=== PATIENT | male | born 1975 | race Caucasian/White ===

== ENCOUNTER 2017-03-21 07:15 | Emergency (ER) | payer OTHER ==
[~2017-03-21] VITALS: Ht 175.3 cm; Wt 122.5 kg
[~2017-03-21 07:15] MED LIST: ANTIVERT12.5 MG PO; ARTANE2 MG PO; ASPIR 8181 MG PO; ATA25 PO; BEN20 PO; CLOTRIMAZOLE; CLOTRIMAZOLE1% TOP; DICYCLOMINE20 MG PO; DOK100 M1 PO; DOK100 M3 PO; GAS RELIEF80 MG PO; GAS-X80 MG PO; GEODON60 MG PO; GEODON80 MG PO; HYDROXYZINE50 M1 PO; KLO0.5 PO; LOVASTATIN20 MG PO; METOCLOPRAMIDE10 MG PO; METOPROLOL TART25 M1 PO; OMEPRAZOLE D/R20 MG PO; PRILOSEC40 MG PO; PRINIVIL10 MG PO; PROMETHAZINE25 M3 PO; TOPIRAGEN200 MG PO; TOPIRAMATE100 M1 PO; ZANTAC 300300 MG PO; ZIPRASIDONE HCL80 MG PO
[2017-03-21 07:27] VITALS: BP 126/88
== END 2017-03-21 08:40 | disposition home or self-care (01) ==
LOC: ED 07:15
DX: T23.252A Burn of second degree of left palm, initial encounter (principal); T23.251A Burn of second degree of right palm, initial encounter; I10 Essential (primary) hypertension; Z79.899 Other long term (current) drug therapy; X17.XXXA Contact with hot engines, machinery and tools, initial encounter; Y93.89 Activity, other specified; Y99.8 Other external cause status; Y92.89 Other specified places as the place of occurrence of the external cause

== ENCOUNTER 2018-09-24 06:24 | Inpatient (IN) | payer OTHER ==
[~2018-09-24] VITALS: Ht 175.3 cm; Wt 119.7 kg
[~2018-09-24 06:24] MED LIST changes: -ANTIVERT12.5 MG PO; +ART2 PO; -ARTANE2 MG PO; -CLOTRIMAZOLE; +GAS-X EXTRA ST125 M1 PO; -GAS-X80 MG PO; +MECLIZINE HCL12.5 MG PO; +PRILOSEC OTC20 M1; -PRILOSEC40 MG PO; -TOPIRAGEN200 MG PO; +TOPIRAMATE200 M1 PO
[2018-09-24 06:28] VITALS: Ht 175.3 cm; Wt 119.7 kg
[2018-09-24 07:29] LABS: BASOPHIL % 0.1 % (0-2); PLATELET COUNT 190 x10^3mcL (130-400); RED CELL DISTRIBUTION WIDTH 12.9 % (11.5-14.5)
[2018-09-24 07:30] LABS: CALCIUM 8.5 mg/dL (8.5-10.1); CARBON DIOXIDE 21.2 mmol/L (21-32); CREATININE SERUM 1.4 mg/dL (0.7-1.3); POTASSIUM SERUM 5.4 mmol/L (3.5-5.1)
[2018-09-24 07:34] LABS: ALBUMIN 3.9 g/dL (3.4-5.0); BILIRUBIN TOTAL 0.62 mg/dL (0.20-1.00); TOTAL PROTEIN, SERUM 7.3 g/dL (6.4-8.2)
[2018-09-24 07:53] LABS: microscopic required? YES; urine erythrocyte 1+ (NEGATIVE)
[2018-09-24] MEDS ORDERED: GEODON80 MG PO (09:17)
[2018-09-24] MEDS ORDERED: GEODON60 MG PO (09:17)
[2018-09-24] MEDS ORDERED: METFORMIN HYDR500 M1 PO (09:19)
[2018-09-24] MEDS ORDERED: FENOFIBRATE MI134 MG PO (09:19)
[2018-09-24] MEDS ORDERED: HALOPERIDOL5 MG PO (09:21)
[2018-09-24] MEDS ORDERED: DEPAKOTE500 MG PO (09:22)
[2018-09-24 12:21] VITALS: BP 108/55
[2018-09-24 21:22] VITALS: BP 95/52
[2018-09-25 05:32] VITALS: BP 129/74
[2018-09-25 09:11] VITALS: BP 125/71
[2018-09-25 10:44] LABS: CALCIUM 8.7 mg/dL (8.5-10.1); CHLORIDE SERUM 108 mmol/L (98-107); CREATININE SERUM 1.1 mg/dL (0.7-1.3); GFR1 > 60 mL/min; GLUCOSE SERUM 331 mg/dL (74-106); POTASSIUM SERUM 3.8 mmol/L (3.5-5.1); SODIUM SERUM 140 mmol/L (136-145)
[2018-09-25 12:28] VITALS: BP 125/71
[2018-09-25 13:18] VITALS: BP 125/71
[2018-09-25] MEDS ORDERED: FLO4 PO (13:26)
[2018-09-25] MEDS ORDERED: APAP500 MG PO (13:26)
== END 2018-09-25 14:03 | disposition home or self-care (01) | DRG 698 ==
LOC: ED 06:24 → DU 08:51
PROVIDERS: Emergency Medicine; ADMIT Internal Medicine
DX: N13.9 Obstructive and reflux uropathy, unspecified (principal); N17.0 Acute kidney failure with tubular necrosis; N20.1 Calculus of ureter; N20.9 Urinary calculus, unspecified; E11.65 Type 2 diabetes mellitus with hyperglycemia; I10 Essential (primary) hypertension; E87.5 Hyperkalemia; F70 Mild intellectual disabilities
CPT/HCPCS: 82962; 99406; J1815; J1885; J7030; J8597